=== PATIENT | female | born 1990 | race Caucasian/White ===

== ENCOUNTER 2018-12-01 00:13 | Emergency (ER) | payer MEDICAID, OTHER ==
[~2018-12-01] VITALS: Ht 149 cm; Wt 55.0 kg
[2018-12-01] MEDS ORDERED: TRIM/SULFAMETH 160/800 (SEPTRA DS) TAB PO STA (00:27)
[2018-12-01] MEDS ORDERED: RX-MUPIROCIN (BACTROBAN) 2% OINT 22 GM TUBE TOP STA (00:27)
[2018-12-01] MEDS ORDERED: SULF-222 PO (00:31)
--- NOTE | 2018-12-01 00:31 | ED Integumentary General ---
General Chief Complaint: Skin/Wound Problems Stated Complaint: BUG BITE Source: patient History of Present Illness Date Seen by Provider: Dec 01, 2018 Time Seen by Provider: 00:16 Initial Comments 28 yo F presenting with sore on right hip that has been present about 10 days and been sore. It kept swelling and earlier today it had popped and drained a yellow green colored pus. She had improved pain after the drainage. She has had previous MRSA was worried that this might be a recurrent MRSA infection. She has not had any fever. She has try just treating this with antibiotic ointment. She is in [facility] and is only here from [facility]. She does not have a vehicle. She was concerned that if this is MRSA as she wanted to be on antibiotics to help it clear up. She was having some pain and soreness to the site. Allergies and Home Medications Allergies Coded Allergies: hydrocodone (Verified Allergy, Unknown, 12/01/18) Home Medications Sulfamethoxazole/Trimethoprim 1 Each Tablet, 1 EACH PO BID Prescribed by: ANTONIO LOVE on 12/01/18 0031 Patient Home Medication List Home Medication List Reviewed: Yes Review of Systems Review of Systems Constitutional: No chills, No fever EENTM: no symptoms reported Respiratory: no symptoms reported Cardiovascular: no symptoms reported Gastrointestinal: no symptoms reported Genitourinary: no symptoms reported Musculoskeletal: see HPI Skin: see HPI Past Utuvrve-Scfhjq-Cwjeud Hx Past Med/Social Hx: Reviewed Nursing Past Med/Soc Hx Patient Social History Recent Foreign Travel: No Contact w/Someone Who Travel: No Recent Hopitalizations: No Past Medical History Surgeries: Yes Section, Tubal Ligation Respiratory: No Cardiac: No Neurological: No Genitourinary: No Gastrointestinal: No Musculoskeletal: No Endocrine: No HEENT: No Cancer: No Psychosocial: No Integumentary: No Blood Disorders: No Physical Exam Vital Signs Vital Signs - First Documented 12/01/18 00:20 Temp 36.3 Pulse 76 Resp 16 B/P (MAP) 115/59 (77) Pulse Ox 96 O2 Delivery Room Air Capillary Refill : General Appearance: WD/WN, no apparent distress Extremities: normal range of motion, non-tender, normal inspection Neurologic/Psychiatric: alert, normal mood/affect, oriented x 3 Skin: warm/dry, other (mild erythema and area of induration and a central ulceration to right lateral hip that pt reports has mild tenderness) Skin Problem Location: lower extremities (right lateral hip) Progress/Results/Core Measures Results/Orders My Orders Orders - ANTONIO LOVE MD Rx-Mupirocin 2% Oint (Rx-Bactroban) (12/01/18 00:27) Sulfamethoxazole/Trimet Ds Tab (Bactrim (12/01/18 00:27) Vital Signs/I&O 12/01/18 12/01/18 00:20 00:38 Temp 36.3 36.3 Pulse 76 76 Resp 16 16 B/P (MAP) 115/59 (77) 115/59 (77) Pulse Ox 96 96 O2 Delivery Room Air Progress Progress Note : Progress Note since there is no further drainage currently and no fluctuance for further drainage for possible I&D here will treat with Bactrim and Bactroban. Departure Impression Primary Impression: Abscess or cellulitis of hip Additional Impression: History of MRSA infection Disposition: HOME, SELF-CARE Condition: Stable Departure-Patient Inst. Decision time for Depature: 00:29 Referrals: NO,LOCAL PHYSICIAN (PCP) Primary Care Physician Patient Instructions: Cellulitis (Skin Infection), Adult (DC), Methicillin- Resistant Staphylococcus aureus (MRSA), Wound Care (DC) Add. Discharge Instructions: Take the full course of antibiotics. use the antibiotic ointment 2 times a day to the wound to help it heal May use ibuprofen or acetaminophen to help with pain and inflammation All discharge instructions reviewed with patient and/or family. Voiced understanding. Scripts Sulfamethoxazole/Trimethoprim (Sulfamethoxazole-Tmp Ds Tablet) 1 Each Tablet 1 EACH PO BID for 10 Days, #20 TAB 0 Refills Prov: ANTONIO LOVE MD 12/01/18 ANTONIO LOVE MD Dec 01, 2018 00:31
[2018-12-01 00:38] VITALS: BP 115/59
== END 2018-12-01 00:38 | disposition home or self-care (01) ==
LOC: ER FS 00:15
DX: L98.419 Non-pressure chronic ulcer of buttock with unspecified severity (principal); Z86.14 Personal history of Methicillin resistant Staphylococcus aureus infection; Z88.5 Allergy status to narcotic agent; Z98.51 Tubal ligation status
CPT/HCPCS: 99283